=== PATIENT | female | born 1950 | race Caucasian/White ===

== ENCOUNTER 2021-07-25 05:02 | Day surgery (SDC) | payer MEDICARE, MEDICAID ==
[2021-07-25] VITALS (7 sets, daily range): BP systolic 119–142; BP diastolic 60–86
[~2021-07-25] VITALS: Ht 160 cm; Wt 69.3 kg
[2021-07-25] MEDS ORDERED: VANCOMYCIN 1GM/200ML IVPB 200 ML IV ONE (06:30)
[2021-07-25] MEDS ORDERED: normal saline 1000ml 1,000 ML IV SCH (06:30)
[2021-07-25] MEDS ORDERED: cefazolin/dext.iso 2gm/50ml 50 ML IV ONE (06:30)
[2021-07-25 06:55] LABS: BASOPHILS # (AUTO) 0.1 X10'3 (0-0.2); BASOPHILS % (AUTO) 1.2 % (0-1); EOSINOPHILS # (AUTO) 0.2 X10'3 (0-0.9); HEMATOCRIT 40.4 % (35.0-45.0); HEMOGLOBIN 13.4 g/dl (12.0-16.0); LYMPHOCYTES % (AUTO) 18.5 % (21-51); MEAN CORPUSCULAR HEMOGLOBIN 28.2 PG (27.0-31.0); MEAN CORPUSCULAR HGB CONC 33.2 g/dL (33.0-36.5); MEAN CORPUSCULAR VOLUME 84.9 FL (78-98); MEAN PLATELET VOLUME 7.5 FL (7.4-10.4); MONOCYTES # (AUTO) 0.5 X10'3 (0-0.9); MONOCYTES % (AUTO) 8.8 % (2-12); NEUTROPHILS # (AUTO) 3.8 X10'3 (1.8-7.7); NEUTROPHILS % (AUTO) 68.5 % (42-75); PLATELET COUNT 194 X10'3 (140-440); RED BLOOD COUNT 4.75 X10'6 (4.20-5.60); RED CELL DISTRIBUTION WIDTH 13.8 % (11.5-14.5); WHITE BLOOD COUNT 5.5 X10'3 (4.5-11.0)
[2021-07-25] MEDS ORDERED: AMLO10TA13 PO (07:02)
[2021-07-25] MEDS ORDERED: ALBU18HF2 (07:02)
[2021-07-25] MEDS ORDERED: OMEP20CA16 PO (07:02)
[2021-07-25] MEDS ORDERED: ALBU2.5V10 PO (07:02)
[2021-07-25] MEDS ORDERED: MONT-40 PO (07:02)
[2021-07-25] MEDS ORDERED: APIX5TAB3 PO (07:02)
[2021-07-25] MEDS ORDERED: fentaNYL/PF 50MCG/1 ML 2ML syringe ONE (07:15)
[2021-07-25] MEDS ORDERED: vancomycin 1,000mg inj ONE (07:15)
[2021-07-25] MEDS ORDERED: midazolam 1 mg/ML 2ml injection ONE ×3 (07:15→08:28)
[2021-07-25] MEDS ORDERED: LIDOCAINE 2% w/EPI 1:100:000 30mL injection MDV**cath lab 1 only ONE (07:16)
[2021-07-25] MEDS ORDERED: iohexol 350 MG/ML 50ML vial IV ONE (07:34)
[2021-07-25 07:50] LABS: ALBUMIN 3.5 G/DL (3.4-5.0); ANION GAP 7 (8-16); BLOOD UREA NITROGEN 20 MG/DL (7-18); CALCIUM 8.5 MG/DL (8.5-10.1); CHLORIDE 109 MMOL/L (99-107); GLUCOSE 95 MG/DL (70-104); MAGNESIUM 2.3 MG/DL (1.5-2.4); POTASSIUM 3.8 MMOL/L (3.5-5.1); SODIUM 144 MMOL/L (135-145); TOTAL CARBON DIOXIDE 28.5 MMOL/L (24-32); eGFR 71 ML/MIN
[2021-07-25] MEDS ORDERED: HYDROcodone/acetaminophen 5mg/325mg tablet PO PRN (09:40)
[2021-07-25] MEDS ORDERED: HYDROcodone/acetaminophen 10/325mg tab PO PRN (09:40)
[2021-07-25] MEDS ORDERED: FLU VACC QS2021-22(6MOS UP)/PF 60 MCG/0.5 ML SYRINGE IM ONE (12:30)
== END 2021-07-25 11:25 | disposition home or self-care (01) ==
LOC: SSTAY O 05:02
PROVIDERS: ATTEND Internal Medicine Cardiovascular Disease
DX: I49.5 Sick sinus syndrome (principal); I48.0 Paroxysmal atrial fibrillation; I10 Essential (primary) hypertension; J44.9 Chronic obstructive pulmonary disease, unspecified; Z79.01 Long term (current) use of anticoagulants; Z79.899 Other long term (current) drug therapy; Z87.891 Personal history of nicotine dependence; Z72.89 Other problems related to lifestyle; Z96.653 Presence of artificial knee joint, bilateral; Z90.710 Acquired absence of both cervix and uterus; Z98.890 Other specified postprocedural states; Z90.722 Acquired absence of ovaries, bilateral; Z88.8 Allergy status to other drugs, medicaments and biological substances; Z88.5 Allergy status to narcotic agent; Z83.3 Family history of diabetes mellitus; Z82.49 Family history of ischemic heart disease and other diseases of the circulatory system
CPT/HCPCS: 33208; 36415; 71045; 80048; 83735; 85025; 85610; 93005; 99152; 99153; C1785; C1894; C1898; J2250; J3010; J3370; J3490; J7030; Q9967; A4565; A4620; A6258

== ENCOUNTER 2022-02-09 07:23 | Day surgery (SDC) | payer MEDICARE, MEDICAID ==
[2022-02-09] VITALS (7 sets, daily range): BP systolic 108–156; BP diastolic 59–79
[~2022-02-09] VITALS: Ht 160 cm; Wt 69.4 kg
[~2022-02-09 07:23] MED LIST: ALBU18HF2; ALBU2.5V10 PO; AMLO10TA13 PO; APIX5TAB3 PO; METO-395 PO; MONT-40 PO; OMEP20CA16 PO
[2022-02-09] MEDS ORDERED: normal saline 1000ml 1,000 ML IV SCH (07:45)
[2022-02-09] MEDS ORDERED: vancomycin/NS 1 GM ADD-VANTAGE 250 ML X 1 DOSE IV ONE (07:50)
[2022-02-09] MEDS ORDERED: DICY10CA88 PO (08:04)
[2022-02-09 08:12] LABS: ALBUMIN 3.9 G/DL (3.4-5.0); ANION GAP 9 (8-16); BLOOD UREA NITROGEN 24 MG/DL (7-18); CALCIUM 9.5 MG/DL (8.5-10.1); CHLORIDE 106 MMOL/L (99-107); CREATININE 0.89 MG/DL (0.40-0.90); GLUCOSE 97 MG/DL (70-104); MAGNESIUM 2.3 MG/DL (1.5-2.4); POTASSIUM 4.1 MMOL/L (3.5-5.1); SODIUM 144 MMOL/L (135-145); TOTAL CARBON DIOXIDE 28.6 MMOL/L (24-32); eGFR 63 ML/MIN
[2022-02-09] MEDS ORDERED: fentaNYL/PF 50MCG/1 ML 2ML syringe ONE (08:38)
[2022-02-09] MEDS ORDERED: vancomycin 1,000mg inj ONE (08:38)
[2022-02-09] MEDS ORDERED: midazolam 1 mg/ML 2ml injection ONE ×4 (08:38→10:08)
[2022-02-09] MEDS ORDERED: LIDOCAINE 2% w/EPI 1:100:000 30mL injection MDV**cath lab 1 only ONE (08:39)
[2022-02-09 08:49] LABS: BASOPHILS # (AUTO) 0.1 X10'3 (0-0.2); BASOPHILS % (AUTO) 1.3 % (0-1); EOSINOPHILS # (AUTO) 0.1 X10'3 (0-0.9); EOSINOPHILS % (AUTO) 2.3 % (0-6); HEMATOCRIT 40.8 % (35.0-45.0); HEMOGLOBIN 13.9 g/dl (12.0-16.0); LYMPHOCYTES # (AUTO) 1.1 X10'3 (1.1-4.8); MEAN CORPUSCULAR HEMOGLOBIN 28.4 PG (27.0-31.0); MEAN CORPUSCULAR VOLUME 83.6 FL (78-98); MEAN PLATELET VOLUME 7.5 FL (7.4-10.4); MONOCYTES # (AUTO) 0.5 X10'3 (0-0.9); MONOCYTES % (AUTO) 9.8 % (2-12); NEUTROPHILS # (AUTO) 3.4 X10'3 (1.8-7.7); NEUTROPHILS % (AUTO) 65.6 % (42-75); PLATELET COUNT 210 X10'3 (140-440); RED BLOOD COUNT 4.88 X10'6 (4.20-5.60); RED CELL DISTRIBUTION WIDTH 13.9 % (11.5-14.5); WHITE BLOOD COUNT 5.3 X10'3 (4.5-11.0)
== END 2022-02-09 12:35 | disposition home or self-care (01) ==
LOC: SSTAY O 07:23
PROVIDERS: ATTEND Internal Medicine Cardiovascular Disease
DX: Z45.010 Encounter for checking and testing of cardiac pacemaker pulse generator [battery] (principal); I49.5 Sick sinus syndrome; I48.0 Paroxysmal atrial fibrillation; I10 Essential (primary) hypertension; J44.9 Chronic obstructive pulmonary disease, unspecified; Z79.899 Other long term (current) drug therapy; Z98.890 Other specified postprocedural states; Z90.710 Acquired absence of both cervix and uterus; Z96.653 Presence of artificial knee joint, bilateral; Z98.51 Tubal ligation status; Z87.891 Personal history of nicotine dependence; Z86.73 Personal history of transient ischemic attack (TIA), and cerebral infarction without residual deficits
CPT/HCPCS: 33222; 36415; 80048; 83735; 85025; 85610; 93005; J0690; J2250; J3010; J3370; J3490; J7030; 99152; 99153; A4615; A4620